=== PATIENT | female | born 1990 | race Caucasian/White ===

== ENCOUNTER 2019-03-30 02:39 | Inpatient (IN) | payer OTHER ==
[2019-03-30] MEDS ORDERED: BUTORPHANOL 1 MG/ML 1 ML VIAL IV PRN (03:02)
[2019-03-30] MEDS ORDERED: METHYLERGONOVINE 0.2 MG/ML 1 ML AMP IM PRN (03:02)
[2019-03-30] MEDS ORDERED: CARBOPROST TROMETHAMINE 250 MCG/ML 1 ML AMP IM PRN (03:02)
[2019-03-30] MEDS ORDERED: OXYTOCIN 10 UNIT/ML 1 ML VIAL IM PRN (03:02)
[2019-03-30] MEDS ORDERED: TERBUTALINE 1 MG/ML VIAL SQ PRN (03:02)
[2019-03-30] MEDS ORDERED: LIDOCAINE 0.5% (PF) 5 MG/ML (50 ML SDV) SQ PRN (03:02)
[2019-03-30] MEDS ORDERED: OXYTOCIN 30 UNITS/500 ML NS 30 UNIT in SALINE 1 500ML.BAG IV SCH (03:15)
[2019-03-30] MEDS: LACTATED RINGERS 1,000 ML IV SCH ×3 (03:39→08:27)
[2019-03-30 03:41] LABS: Glucose,Whole Blood 131 mg/dL (75-99)
[2019-03-30 03:51] LABS: Basophils # (A) 0.1 k/uL (0-0.2); Basophils % (A) 1 %; Eosinophils # (A) 0.2 k/uL (0-0.7); Eosinophils % (A) 2 %; HCT 39.2 % (34.0-46.0); HGB 13.3 gm/dL (11.4-16.0); Lymphocytes # (A) 2.1 k/uL (1.0-4.8); Lymphocytes % (A) 21 %; MCH 30.6 pg (25.0-35.0); MCHC 33.8 g/dL (31.0-37.0); MCV 90.3 fL (80.0-100.0); Monocytes # (A) 0.6 k/uL (0-1.0); Monocytes % (A) 5 %; Neutrophils % (A) 70 %; Platelet Count 253 k/uL (150-450); RBC 4.34 m/uL (3.80-5.40); RDW 12.9 % (11.5-15.5); WBC 10.1 k/uL (3.8-10.6)
[2019-03-30 04:05] VITALS: BMI 29.5
[2019-03-30 05:16] LABS: Glucose,Whole Blood 117 mg/dL (75-99)
[2019-03-30 06:17] LABS: Glucose,Whole Blood 95 mg/dL (75-99)
[2019-03-30] MEDS ORDERED: fentaNYL (PF) 50 MCG/ML 5 ML AMP ONE (07:42)
[2019-03-30] MEDS ORDERED: SODIUM CHLORIDE 0.9% 100 ML BAG ONE (07:42)
[2019-03-30] MEDS ORDERED: ePHEDrine SULFATE/0.9% NACL/PF 50 MG/5 ML SYRINGE IV ONE (07:42)
[2019-03-30] MEDS ORDERED: ROPIVACAINE 5MG/ML 20ML VIAL ONE (07:42)
[2019-03-30 08:09] LABS: Glucose,Whole Blood 94 mg/dL (75-99)
[2019-03-30 09:49] LABS: Glucose,Whole Blood 98 mg/dL (75-99)
--- NOTE | 2019-03-30 10:47 | P.HPOB ---
History of Present Illness H&P Date: 03/30/19 Chief Complaint: My water broke at 1:30 this morning This is a 28-year-old white female 2 para 1001 EDC 04/15/2019 at 37-5/7 weeks' gestation. Patient presents today with a history of her water breaking this morning, at 0130 hours, clear fluid. She denied uterine contractions upon admission. She denies vaginal bleeding. Fetus is been active throughout the . Past obstetric history is significant for gestational diabetes, insulin managed. Blood sugar on admission 131, currently 98. Blood type is A+, rubella status immune. Group B strep cultures negative. Hepatitis B surface antigen, urine drug screen, HIV testing, Pap smear, gonorrhea and chlamydia cultures all negative. Past medical history is significant for anxiety and asthma. Past surgical history wisdom teeth extracted at age 15. Current medications vitamin daily, Prozac 20mg daily. ALLERGIES none known. Family history significant for hypertension, seizure disorder, and alcoholism. Social history patient is a former marijuana smoker, no tobacco or marijuana with . She is employed, she is , her Osmar is present and involved. On exam this is a pleasant white female who is 5 foot 8 inches, 194 pounds, blood pressure on admission 146/68. The general physical exam is within normal limits. Cervix on admission was closed, posterior, long, vertex. Oxytocin augmentation has been started. Cervix at time of this dictation is 9 cm dilated, 90% effaced, -1 station, still slightly posterior. heart rate is in the 140s with frequent accelerations, consistent with reactive NST. Uterine contractions are occurring approximately every 6 minutes apart. Epidural has been placed per her request. Impression: 37-5/7 weeks intrauterine , gestational diabetes with good control utilizing insulin, active labor. Group B strep cultures negative. All signs reassuring. Plan: Continue close maternal and surveillance. Anticipate normal spontaneous vaginal delivery. Review of Systems Constitutional: Reports as per HPI Past Medical History Past Medical History: Asthma Additional Past Medical History / Comment(s): IBS/Gluten Allergy History of Any Multi-Drug Resistant Organisms: None Reported Additional Past Surgical History / Comment(s): [place] teeth removed Past Anesthesia/Blood Transfusion Reactions: No Reported Reaction Past Psychological History: Anxiety, Depression Additional Psychological History / Comment(s): Prozac Smoking Status: Never smoker Past Alcohol Use History: Rare Past Drug Use History: None Reported - Past Family History Father Family Medical History: No Reported History Medications and Allergies Home Medications Medication Instructions Recorded Confirmed Type FLUoxetine HCL [FLUoxetine DR] 20 mg PO DAILY 01/23/19 03/30/19 History Pnv,Calcium 72/Iron/Folic Acid 1 tab PO DAILY 01/23/19 03/30/19 History [ Plus Tablet] Allergies Allergy/AdvReac Type Severity Reaction Status Date / Time [place] And Derivatives Allergy Nausea Verified 03/30/19 03:02 [[place]] gluten Allergy Diarrhea Verified 03/30/19 03:02 Exam Vital Signs Temp Pulse Resp BP Pulse Ox 03/30/19 05:04 98.2 F 83 16 133/68 03/30/19 03:26 96.9 F L 77 16 146/67 99 03/30/19 03:03 96.9 F L 77 16 146/67 99 Intake and Output 03/29/19 03/30/19 03/30/19 22:59 06:59 14:59 Intake Total 2000 Balance 1999 Intake: IV 2000 Lactated Ringers 1,000 ml 2000 @ 125 mls/hr IV .Q8H KODY Rx#:[id number] Other: # Voids 1 Weight 87.997 kg See dictation under HPI please Results Result Diagrams: 03/30/19 03:37 Abnormal Lab Results - Last 24 Hours (Table) 03/30/19 03/30/19 Range/Units 03:30 05:03 POC Glucose (mg/dL) 131 H 117 H (75-99) mg/dL Assessment and Plan Assessment: 37-5/7 weeks intrauterine , history of anxiety and asthma. Active labor. Gestational diabetes, most recent blood sugar 98. All signs reassuring. Plan: Continue close maternal and surveillance. Continue oxytocin augmentation per hospital protocol. Anticipate normal spontaneous vaginal delivery. Time with Patient: Less than 30
--- NOTE | 2019-03-30 10:52 | P.MSEPDOC ---
Presenting Problems - Arrival Data Date of Arrival on Unit: 03/30/19 Time of Arrival on Unit: 03:00 Mode of Transport: Wheelchair - Complaint OB-Reason for Admission/Chief Complaint: Possible Onset of Labor, Rule Out SROM Comment: SROM clear fluid at 0130 Medical History - Information : 2 Para: 1 Term: 1 : 0 Abortions: Spontaneous or Elective: 0 Number of Living Children: 1 - Gestational Age Gestational Age by RONAK (wks/days): 37 Weeks and 5 Days - History Complications: GDM Review of Systems - Review of Systems Constitutional: No problems Breast: No problems ENT: No problems Cardiovascular: No problems Respiratory: No problems Gastrointestinal: No problems Genitourinary: No problems Musculoskeletal: No problems Neurological: No problems Skin: No problems Vital Signs - Temperature Temperature: 98.2 F Temperature Source: Temporal Artery Scan - Pulse Right Pulse Rate: 83 Pulse Assessment Method: Pulse Oximetry - Respirations Respiratory Rate: 16 - Blood Pressure Right Arm Blood Pressure: 133/68 Blood Pressure Mean: 89 Blood Pressure Source: Automatic Cuff Medical Screen Scoring (Pre) - Cervical Exam Dilation: 0 cm = 0 Membranes: Ruptured = 3 - Uterine Contractions Frequency: > or = 36 weeks =2 Duration: > 40 seconds = 2 Intensity: N/A - Maternal Vital Signs Maternal Temperature: N/A Maternal Blood Pressure: N/A Signs of Preeclampsia: N/A Maternal Respirations: N/A - Maternal Trauma Maternal Trauma: N/A - Assessment - Baby A Baseline FHR: 130 Heart Rate - NICHD Category: Category I (Normal) = 0 NST: Reactive Position: N/A Station: N/A - Total Score - Baby A Total Score - Baby A: 7 - Total Score - Baby B Total Score - Baby B: 7 - Total Score - Baby C Total Score - Baby C: 7 - Level of Risk - Baby A Level of Risk - Baby A: Medium (6-9) - Level of Risk - Baby B Level of Risk - Baby B: Medium (6-9) - Level of Risk - Baby C Level of Risk - Baby C: Medium (6-9) Physician Notification (Pre) - Physician Notified Spoke With: RAYRAY New Order Received: Yes - Notification Comment Comment: CALLED FOR UPDATE AND REQUESTED VAG EXAM AT 0900 AND CALL BACK WITH RESULTS Disposition - Disposition OB Disposition: Admit Transferred to:: 7 I agree with the RN Medical Screening Exam: Yes Risk & Benefit of care provided described in d/c instruction: Yes Diagnosis: LOUSE-BORNE TYPHUS
[2019-03-30] MEDS ORDERED: LANOLIN CREAM 5 GM TUBE TOPICAL PRN (11:49)
[2019-03-30] MEDS ORDERED: diphenhydrAMINE ELIXIR 25 MG/10 ML CUP PO PRN (11:49)
[2019-03-30] MEDS ORDERED: ZOLPIDEM 5 MG TAB PO PRN (11:49)
[2019-03-30] MEDS ORDERED: diphenhydrAMINE 50 MG CAP PO PRN (11:49)
[2019-03-30] MEDS ORDERED: WITCH HAZEL 1 EACH MED..PAD TOPICAL PRN (11:49)
[2019-03-30] MEDS ORDERED: BENZOCAINE/MENTHOL SPRAY 1 GM/SPRAY AEROSOL TOPICAL PRN (11:49)
[2019-03-30] MEDS ORDERED: diphenhydrAMINE 50 MG/ML 1 ML VIAL IVP PRN ×2 (11:49)
[2019-03-30] MEDS ORDERED: diphenhydrAMINE 25 MG CAP PO PRN (11:49)
[2019-03-30] MEDS ORDERED: SIMETHICONE 80 MG CHEWABLE PO PRN (11:49)
[2019-03-30] MEDS ORDERED: HYDROCORTISONE 2.5% RECTAL CREAM 30 GM TUBE RECTAL PRN (11:49)
--- NOTE | 2019-03-30 11:49 | P.PROBDLV ---
Vaginal Delivery Note - . Vaginal Delivery Note: This is a 28-year-old white female 2 para 1001 EDC 04/15/2019 at 37-5/7 weeks' gestation. Patient presented earlier this morning with spontaneous amniorrhexis which occurred at home, clear fluid. Her is remarkable for gestational diabetes, well controlled on insulin. In addition she is on Prozac for history of anxiety. [place] strep cultures negative. Blood type A+. Rubella status immune. Please see dictated history and physical for details. On admission cervix is closed posterior and long. Oxytocin was started and titrated per hospital protocol. She progressed well through the first stage of labor, requested epidural and this was placed without difficulty. Patient became completely dilated at 1120 hours and began the second stage of labor at that time. With excellent maternal expulsive efforts the infant crowned in the occiput ant erior position after the perineal body was prepped and draped in the usual sterile fashion. The was no nuchal cord noted. The right or anterior shoulder was gently delivered from underneath the pubic symphysis at which time the oropharynx, nasopharynx, and external nares were all bulb suctioned. Patient was officially delivered a liveborn female at 1127 hours. Umbilical cord was doubly clamped and ligated, she was handed to waiting nurses for evaluation where scores of 9 and 9 at one and 5 minutes respectively were given. Placenta delivered spontaneously, it was inspected and noted to be intact with trivascular cord at 1129 hours. Uterus is then massaged. Inspection of the cervix, vagina, perineum, periurethral, and perirectal areas revealed a small second-degree perineal laceration. This was injected with lidocaine and repaired in the usual fashion. weighs 7 lbs. 5 oz. or 3310 g. Total estimated blood loss 250 mL's. All sponge needle and enhancement counts are correct at the end of the procedure. Patient is allowed to begin the bonding experience in the LDR.
[2019-03-30] MEDS ORDERED: FLUoxetine HCL 20 MG CAP PO STA (11:51)
[2019-03-30] MEDS ORDERED: OXYTOCIN 20 UNITS/1000 ML NS 1,000 ML IV SCH (12:00)
[2019-03-30] MEDS: IBUPROFEN 600 MG TAB PO PRN ×2 (12:25→18:45)
[2019-03-30] MEDS: ACETAMINOPHEN TAB 325 MG TAB PO PRN ×2 (16:07→20:54)
[2019-03-30] MEDS: SENNOSIDES-DOCUSATE SODIUM 1 EACH TAB PO SCH (20:48)
[2019-03-31] MEDS: IBUPROFEN 600 MG TAB PO PRN ×3 (00:26→16:11)
[2019-03-31] MEDS: ACETAMINOPHEN TAB 325 MG TAB PO PRN ×2 (04:52→20:41)
[2019-03-31] MEDS: SENNOSIDES-DOCUSATE SODIUM 1 EACH TAB PO SCH ×2 (08:48→20:41)
--- NOTE | 2019-03-31 10:41 | P.DS ---
Providers Date of admission: 03/30/19 02:53 Expected date of discharge: 03/31/19 Attending physician: Fouzia Sosa [facility] Course: This is a 28-year-old white female 2 para 1001 EDC 04/15/19 at 37-5/7 weeks' gestation. Patient presented with spontaneous amniorrhexis which occurred at home, clear fluid. Her was remarkable for gestational diabetes, on insulin. She additionally has a history of anxiety, and is on Prozac. Group B strep cultures negative, rubella status immune, blood type A+. Please see dictated history and physical for details. Patient was admitted, oxytocin augmentation was started. Epidural was placed per her request. She went on to deliver vaginally a liveborn female with scores of 9 and 9 at one and 5 minutes respectively. Baby weighed 7 lbs. 5 oz. or 3310 g. There was a small second-degree daily perineal laceration easily repaired. Estimated blood loss recorded of 250 mL's. Please see dictated delivery note for details. This morning the patient is doing well. She is voiding, ambulating, and passing flatus without difficulty. Vital signs are stable and she is afebrile. Fundus is firm and in the midline, symmetric and 18 week size. Extremities are negative for edema. Breast-feeding is going well, a prescription for breast pump is provided. Patient is judged to be in very good condition for discharge home. She will follow-up with me in the office in 6 weeks. I have reminded her no intercourse, tampons or douching. She will use [id number] Advil or Aleve, or ibuprofen as needed for pain. She will continue her Prozac daily, and her vitamin daily. I've asked her to call me with any fevers shakes or chills, foul smelling or copious lochia, with the passage of large blood clots, with any pain not alleviated by [id number] products, or indeed with any difficulties problems or concerns. We have reviewed options for contraception and this will be discussed further in the office. Patient Condition at Discharge: Good Plan - Discharge Summary Discharge Rx Participant: No New Discharge Prescriptions: No Action Pnv,Calcium 72/Iron/Folic Acid [ Plus Tablet] 1 tab PO DAILY FLUoxetine HCL [FLUoxetine DR] 20 mg PO DAILY Discharge Medication List FLUoxetine HCL [FLUoxetine DR] 20 mg PO DAILY 01/23/19 [History] Pnv,Calcium 72/Iron/Folic Acid [ Plus Tablet] 1 tab PO DAILY 01/23/19 [History] Follow up Appointment(s)/Referral(s): Fouzia Sosa MD [Primary Care Provider] - 6 Weeks Discharge Disposition: HOME SELF-CARE
[2019-03-31 15:39] VITALS: TEMP 98.6
[2019-03-31 21:08] VITALS: BP 121/69; PULSE 74; RESP 12
== END 2019-03-31 21:10 | disposition home or self-care (01) | DRG 807 ==
LOC: FBPOP 02:39 → 4FBP 02:53
PROVIDERS: ADMIT Obstetrics & Gynecology; ATTEND Obstetrics & Gynecology
PROC: 10E0XZZ Delivery of Products of Conception, External Approach (ICD-10-PCS; principal; 2019-03-30)
PROC: 0KQM0ZZ Repair Perineum Muscle, Open Approach (ICD-10-PCS; 2019-03-30)
PROC: 00HU33Z Insertion of Infusion Device into Spinal Canal, Percutaneous Approach (ICD-10-PCS; 2019-03-30)
PROC: 3E0R3BZ Introduction of Anesthetic Agent into Spinal Canal, Percutaneous Approach (ICD-10-PCS; 2019-03-30)
DX: O24.424 Gestational diabetes mellitus in childbirth, insulin controlled (principal); Z37.0 Single live birth; O99.344 Other mental disorders complicating childbirth; O99.52 Diseases of the respiratory system complicating childbirth; O70.1 Second degree perineal laceration during delivery; F32.9 Major depressive disorder, single episode, unspecified; Z3A.37 37 weeks gestation of pregnancy; F41.9 Anxiety disorder, unspecified; J45.909 Unspecified asthma, uncomplicated; F12.11 Cannabis abuse, in remission; Z79.4 Long term (current) use of insulin; Z79.899 Other long term (current) drug therapy; Z98.890 Other specified postprocedural states; Z91.018 Allergy to other foods; Z82.49 Family history of ischemic heart disease and other diseases of the circulatory system; Z82.0 Family history of epilepsy and other diseases of the nervous system; Z81.1 Family history of alcohol abuse and dependence
CPT/HCPCS: 85025; 86850; 86900; 86901

== ENCOUNTER 2019-09-19 18:42 | Emergency (ER) | payer OTHER ==
[2019-09-19] MEDS ORDERED: SODIUM CHLORIDE 0.9% 500 ML 500 ML IV STA (19:14)
[2019-09-19] MEDS ORDERED: KETOROLAC 30 MG/ML 1 ML VIAL IM STA (19:16)
[2019-09-19] MEDS ORDERED: ORPHENADRINE 30 MG/ML 2 ML VIAL IVP STA (19:16)
[2019-09-19] MEDS ORDERED: DIAZEPAM 5 MG/ML 2 ML INJ IVP STA (19:30)
[2019-09-19 19:43] LABS: Basophils % (A) 0 %; Eosinophils # (A) 0.2 k/uL (0-0.7); Eosinophils % (A) 3 %; HCT 43.4 % (34.0-46.0); HGB 14.6 gm/dL (11.4-16.0); Lymphocytes # (A) 2.6 k/uL (1.0-4.8); Lymphocytes % (A) 41 %; MCH 29.8 pg (25.0-35.0); MCHC 33.7 g/dL (31.0-37.0); MCV 88.4 fL (80.0-100.0); Mean Platelet Volume 7.1; Monocytes # (A) 0.2 k/uL (0-1.0); Monocytes % (A) 4 %; Neutrophils % (A) 49 %; Platelet Count 276 k/uL (150-450); RBC 4.91 m/uL (3.80-5.40); RDW 11.5 % (11.5-15.5); WBC 6.2 k/uL (3.8-10.6)
--- NOTE | 2019-09-19 19:50 | ED ---
General Adult HPI - General Chief complaint: Neck Pain/Injury Stated complaint: Neck Pain Time Seen by Provider: 09/19/19 18:53 Source: patient, RN notes reviewed Mode of arrival: ambulatory Limitations: no limitations - History of Present Illness Initial comments: 28-year-old female presents to the emergency department for a chief complaint of neck pain. Patient states this started 5 days ago when she woke up. States she went to stretch and felt a sudden pain in the back of her neck. States that her neck was sore the whole day. The next day she went to the chiropractor and this helped with the pain after her adjustment. Patient states that he did have improvement from the past several days however today she went to shake a protein shake her and suddenly felt the pain again. She went to the chiropractor who did not feel comfortable adjusting her and sent her to her primary care doctor who ultimately sent her to the emergency Department. Patient denies any constitutional symptoms. Denies any fevers or chills. Denies any numbness or weakness in the upper extremities. Has had similar neck pain prior. Denies any associated headaches. States she feels completely normal aside from this neck pain.Patient has no other complaints at this time including shortness of breath, chest pain, abdominal pain, nausea or vomiting, headache, or visual changes. - Related Data Home Medications Medication Instructions Recorded Confirmed FLUoxetine HCL [FLUoxetine DR] 20 mg PO DAILY 01/23/19 03/30/19 Pnv,Calcium 72/Iron/Folic Acid 1 tab PO DAILY 01/23/19 03/30/19 [ Plus Tablet] Previous Rx's Medication Instructions Recorded Acetaminophen [Tylenol] 500 mg PO Q4-6H PRN #20 tab 09/19/19 Cyclobenzaprine [Flexeril] 10 mg PO TID #14 tab 09/19/19 Ibuprofen [Motrin] 600 mg PO Q6HR PRN #20 tab 09/19/19 Allergies Allergy/AdvReac Type Severity Reaction Status Date / Time [place] And Derivatives Allergy Nausea Verified 09/19/19 18:50 [[place]] gluten Allergy Diarrhea Verified 09/19/19 18:50 Review of Systems ROS Statement: Those systems with pertinent positive or pertinent negative responses have been documented in the HPI. ROS Other: All systems not noted in ROS Statement are negative. Past Medical History Past Medical History: Asthma Additional Past Medical History / Comment(s): IBS/Gluten Allergy History of Any Multi-Drug Resistant Organisms: None Reported Additional Past Surgical History / Comment(s): [place] teeth removed Past Anesthesia/Blood Transfusion Reactions: No Reported Reaction Past Psychological History: Anxiety, Depression Smoking Status: Never smoker Past Alcohol Use History: Rare Past Drug Use History: None Reported - Past Family History Father Family Medical History: No Reported History General Exam Limitations: no limitations General appearance: alert, in no apparent distress Head exam: Present: atraumatic, normocephalic, normal inspection Eye exam: Present: normal appearance, PERRL, EOMI. Absent: scleral icterus, conjunctival injection, periorbital swelling ENT exam: Present: normal exam, mucous membranes moist Neck exam: Present: tenderness (Midline and paraspinal tenderness), other (Patient has trapezius pain when shrugging her shoulders.). Absent: meningismus (Negative Kernig, negative Brudzinski, negative Lhermitte sign), full ROM (Patient has about 15 lateral rotation bilaterally. She has about 20 flexion and extension to neutral position.) Respiratory exam: Present: normal lung sounds bilaterally. Absent: respiratory distress, wheezes, rales, rhonchi, stridor Cardiovascular Exam: Present: regular rate, normal rhythm, normal heart sounds. Absent: systolic murmur, diastolic murmur, rubs, gallop, clicks Extremities exam: Present: other (Radial pulses 2+ and equal bilaterally. [employer] strength 5 out of 5 bilaterally. Sensation intact bilaterally.) Course Vital Signs 09/19/19 09/19/19 18:46 20:28 Temperature 98.1 F 97.1 F L Pulse Rate 62 53 L Respiratory 18 16 Rate Blood Pressure 126/84 117/72 O2 Sat by Pulse 99 99 Oximetry Medical Decision Making - Medical Decision Making Vitals are stable. Physical exam does reveal some mild paraspinal cervical tenderness. Patient is able to flex neck about 30 and extend to neutral position or about 10 extension. Rotation limited secondary to pain. Negative Kernig, Brudzinski, Lhermitte sign. Neurovascular status intact in the upper extremities bilaterally. Patient does not have any constitutional symptoms. CBC CMP unremarkable. ESR 6. CRP is less than 5. CT angiography of the head and neck shows no evidence of aneurysm or neurovascularity. Intracranial arteri es are relatively small which can be associated with spasm. No focal stenosis. Patient does not have any neurologic symptoms. Given pain worsening with movement of the neck, no evidence of constitutional symptoms, and history of injury patient likely has musculoskeletal neck pain. Patient was evaluated by Dr. Roberts thoroughly as well. We do not see any evidence for meningitis. Patient was given Toradol which did help significantly with her pain. She refused the Valium here however did agree to oral Flexeril. Discussed anti- inflammatories and gentle stretching. Discussed follow-up with primary care in 1-2 days. Patient will return here with any worsening symptoms including fever or increasing pain which were discussed with her. - Lab Data Result diagrams: 09/19/19 19:32 09/19/19 19:32 Lab Results 09/19/19 09/19/19 09/19/19 Range/Units 19:30 19:32 19:32 WBC 6.2 (3.8-10.6) k/uL RBC 4.91 (3.80-5.40) m/uL Hgb 14.6 (11.4-16.0) gm/dL Hct 43.4 (34.0-46.0) % MCV 88.4 (80.0-100.0) fL MCH 29.8 (25.0-35.0) pg MCHC 33.7 (31.0-37.0) g/dL RDW 11.5 (11.5-15.5) % Plt Count 276 (150-450) k/uL Neutrophils % 49 % Lymphocytes % 41 % Monocytes % 4 % Eosinophils % 3 % Basophils % 0 % Neutrophils # 3.0 (1.3-7.7) k/uL Lymphocytes # 2.6 (1.0-4.8) k/uL Monocytes # 0.2 (0-1.0) k/uL Eosinophils # 0.2 (0-0.7) k/uL Basophils # 0.0 (0-0.2) k/uL ESR 6 (0-20) mm/hr Sodium 139 (137-145) mmol/L Potassium 4.1 (3.5-5.1) mmol/L Chloride 99 (98-107) mmol/L Carbon Dioxide 30 (22-30) mmol/L Anion Gap 10 mmol/L BUN 12 (7-17) mg/dL Creatinine 0.71 (0.52-1.04) mg/dL Est GFR (CKD-EPI)AfAm >90 (>60 ml/min/1.73 sqM) Est GFR (CKD-EPI)NonAf >90 (>60 ml/min/1.73 sqM) Glucose 95 (74-99) mg/dL Calcium 9.9 (8.4-10.2) mg/dL Total Bilirubin 0.3 (0.2-1.3) mg/dL AST 23 (14-36) U/L ALT 19 (4-34) U/L Alkaline Phosphatase 91 (38-126) U/L C-Reactive Protein <5.0 (<10.0) mg/L Total Protein 8.1 (6.3-8.2) g/dL Albumin 5.0 (3.5-5.0) g/dL Urine HCG, Qual Not Detected (Not Detectd) Disposition Clinical Impression: Neck pain Disposition: HOME SELF-CARE Condition: Good Instructions (If sedation given, give patient instructions): Cervical Strain (ED) Additional Instructions: Please take Motrin and Tylenol for pain. You may alternate these every 3 hours. Take muscle relaxer as well. Do not drive or operate machinery while taking these. Pres[facility] to [facility]. Please follow-up with primary care in 1-2 days. If you have any worsening symptoms such as increasing pain, fevers, or numbness or tingling in the arms return immediately to the emergency department. Prescriptions: Cyclobenzaprine [Flexeril] 10 mg PO TID #14 tab Ibuprofen [Motrin] 600 mg PO Q6HR PRN #20 tab PRN Reason: Pain Acetaminophen [Tylenol] 500 mg PO Q4-6H PRN #20 tab PRN Reason: Pain Is patient prescribed a controlled substance at d/c from ED?: No Referrals: Doris Mills III, MD [Primary Care Provider] - 1-2 days Time of Disposition: 21:07
[2019-09-19 19:56] LABS: ALT 19 U/L (4-34); AST 23 U/L (14-36); African American GFR (CKD) >90 (>60 ml/min/1.73 sqM); Alkaline Phosphatase 91 U/L (38-126); Anion Gap 10 mmol/L; Blood Urea Nitrogen 12 mg/dL (7-17); C Reactive Protein <5.0 mg/L (<10.0); Calcium 9.9 mg/dL (8.4-10.2); Carbon Dioxide 30 mmol/L (22-30); Chloride 99 mmol/L (98-107); Glucose 95 mg/dL (74-99); Non-African American GFR(CKD) >90 (>60 ml/min/1.73 sqM); Potassium 4.1 mmol/L (3.5-5.1); Sodium 139 mmol/L (137-145); Total Bilirubin 0.3 mg/dL (0.2-1.3); Total Protein 8.1 g/dL (6.3-8.2)
[2019-09-19] MEDS ORDERED: KETOROLAC 30 MG/ML 1 ML VIAL IVP STA (19:59)
[2019-09-19 20:20] LABS: Erythrocyte Sedimentation Rate 6 mm/hr (0-20)
[2019-09-19 20:33] VITALS: BP 117/72; PULSE 53; RESP 16; TEMP 97.1
--- NOTE | 2019-09-19 20:37 | CT ---
EXAMINATION TYPE: CT angio head neck DATE OF EXAM: 09/19/2019 COMPARISON: HISTORY: Severe neck pain, no known injury. CT DLP: 425.7 mGycm Automated exposure control for dose reduction was used. CONTRAST: Performed with IV Contrast, patient injected with 65ml mL of Isovue 370. There are 3-D post processed images. Images were obtained from the aortic arch to the vertex of the b rain. There is normal branching pattern of the great vessels on the aortic arch. There is bilateral arteria l flow in the subclavian arteries. There is arterial flow in the common internal and external carotid arteries bilaterally. There is wide patency of the carotid artery bifurcations. There is bilateral a rterial flow in the vertebral arteries which are fairly symmetric. There is arterial flow in the vert ebrobasilar artery system. There is no evidence of carotid or vertebral artery aneurysm or dissection . There is arterial flow in the anterior middle and posterior cerebral arteries. There is no evidence o f intracranial aneurysm or neovascularity. There is no mass effect. I see no evidence of intracranial arterial focal stenosis. The anterior middle and posterior cerebral arteries are relatively small. There is normal contrast opacification of the venous sinuses. IMPRESSION: No evidence of aneurysm or neovascularity. The intracranial arteries are relatively small and of unce rtain significance. This can be associated with spasm. No focal stenosis.
[2019-09-19] MEDS ORDERED: CYCLOBENZAPRINE 10 MG TAB PO STA (21:04)
== END 2019-09-19 21:21 | disposition home or self-care (01) ==
LOC: EC 18:42
DX: M54.2 Cervicalgia (principal); F32.9 Major depressive disorder, single episode, unspecified; F41.9 Anxiety disorder, unspecified; Z91.018 Allergy to other foods; Z91.02 Food additives allergy status; Z79.899 Other long term (current) drug therapy; Z53.20 Procedure and treatment not carried out because of patient's decision for unspecified reasons
CPT/HCPCS: 36415; 80053; 85652; 85025; 86140; 81025; 70496; 70498; 99284; 96374; 96361; J1885; Q9967

== ENCOUNTER 2022-06-14 21:30 | Emergency (ER) | payer BC, OTHER ==
[2022-06-14] MEDS ORDERED: KETOROLAC 15 MG/ML 1 ML VIAL IM STA (21:55)
--- NOTE | 2022-06-14 22:18 | ED ---
Lower Extremity Injury HPI - General Chief Complaint: Extremity Injury, Lower Stated Complaint: Left Knee Injury Time Seen by Provider: 06/14/22 21:45 Source: patient, family, RN notes reviewed Mode of arrival: ambulatory Limitations: no limitations - History of Present Illness Initial Comments: Patient is a 31-year-old female presenting to the emergency room with complaints of left knee pain after playing soccer earlier today and tripping on her causing her to fall forward with her legs straight landing on her left knee. She reports that she heard a popping sensation and has had severe pain throughout the whole knee joint with the highest intensity of pain to the patellar and medial aspect. She reports the pain is so severe she does not wish to have range of motion assessment completed at this time. She denies any numbness or tingling in her extremity including the toes. She has not. Weight on her left leg since the injury earlier this evening. She reports multiple knee sprains and episodes of physical therapy when she was younger and playing soccer regularly. She has a past medical history in addition to her knee injuries of a sthma, and IBS with gluten allergy. - Related Data Home Medications Medication Instructions Recorded Confirmed FLUoxetine HCL [FLUoxetine DR] 20 mg PO DAILY 01/23/19 03/30/19 Vit No.180/Iron/Folic 1 tab PO DAILY 01/23/19 03/30/19 [ Plus Tablet] Previous Rx's Medication Instructions Recorded Acetaminophen [Tylenol] 500 mg PO Q4-6H PRN #20 tab 09/19/19 Cyclobenzaprine [Flexeril] 10 mg PO TID #14 tab 09/19/19 Ibuprofen [Motrin] 600 mg PO Q6HR PRN #20 tab 09/19/19 Ibuprofen [Motrin] 800 mg PO Q8H PRN 7 Days #21 tab 06/14/22 Allergies Allergy/AdvReac Type Severity Reaction Status Date / Time [place] And Derivatives Allergy Nausea Verified 06/14/22 21:32 [[place]] gluten Allergy Diarrhea Verified 06/14/22 21:32 morphine AdvReac Nausea Verified 06/15/22 00:34 Review of Systems ROS Statement: Those systems with pertinent positive or pertinent negative responses have been documented in the HPI. ROS Other: All systems not noted in ROS Statement are negative. Past Medical History Past Medical History: Asthma Additional Past Medical History / Comment(s): IBS/Gluten Allergy History of Any Multi-Drug Resistant Organisms: None Reported Additional Past Surgical History / Comment(s): [place] teeth removed Past Anesthesia/Blood Transfusion Reactions: No Reported Reaction Past Psychological History: Anxiety, Depression Smoking Status: Never smoker Past Alcohol Use History: Rare Past Drug Use History: Marijuana - Past Family History Father Family Medical History: No Reported History General Exam Limitations: no limitations General appearance: alert, in no apparent distress Head exam: Present: atraumatic, normocephalic, normal inspection Eye exam: Present: normal appearance, PERRL, EOMI. Absent: scleral icterus, conjunctival injection, periorbital swelling ENT exam: Present: normal exam, mucous membranes moist Neck exam: Present: normal inspection, full ROM Respiratory exam: Absent: respiratory distress, accessory muscle use Cardiovascular Exam: Present: regular rate GI/Abdominal exam: Absent: distended Left Knee exam: Present: tenderness, swelling, effusion. Absent: full ROM, ecchymosis, erythema Neurovascular tendon exam: Present: no vascular compromise Gait: not tested/not observed Back exam: Present: normal inspection Neurological exam: Present: alert, oriented X3, CN II-XII intact Psychiatric exam: Present: normal affect, normal mood Skin exam: Present: warm, dry, intact, normal color. Absent: rash Course Vital Signs 06/14/22 06/14/22 06/15/22 21:33 23:43 00:00 Pulse Rate 68 66 52 L Respiratory 16 18 16 Rate Blood Pressure 121/64 107/69 73/44 O2 Sat by Pulse 98 98 92 L Oximetry 06/15/22 06/15/22 06/15/22 00:11 00:30 01:12 Pulse Rate 55 L 52 L 60 Respiratory 16 18 16 Rate Blood Pressure 95/61 104/69 128/67 O2 Sat by Pulse 100 98 100 Oximetry Medical Decision Making - Medical Decision Making 31-year-old male presenting to the emergency room with knee pain after a trip and fall while playing soccer. Will obtain x-ray of the left knee. No indication for laboratory studies. Due to pain unable to evaluate range of motion. Will give Toradol IM for pain and monitor response. No significant improvement in pain from Toradol will give IM morphine and monitor response. X-ray of the knee image interpreted by me shows fine anterior fibula fracture nondisplaced along with knee effusion. Will place knee in immobilizer and supplied with crutches and keep nonweightbearing will have her follow-up with orthopedist for further evaluation and management. Will discharge home in stable condition with weightbearing and immobilizer restrictions as indicated above. Encouraged use of ibuprofen or Tylenol# 3 starter pack as needed for pain. Case discussed with Dr. Levy. - Radiology Data Radiology results: report reviewed, image reviewed X-ray left knee complete impression by radiologist there is likely a nondisplaced fracture of the anterior tibial spine seen on the lateral view. Mild knee joint effusion. Disposition Clinical Impression: Fracture of tibia Disposition: HOME SELF-CARE Condition: Stable Instructions (If sedation given, give patient instructions): Leg Fracture (ED), Knee Pain (ED) Additional Instructions: Please utilize Tylenol 3 starter pack or Motrin prescription as needed for pain. Keep the immobilizer on and no weightbearing with crutches use until follow-up and cleared by orthopedist. Please return to the Emergency Department if symptoms worsen or any other concerns. Prescriptions: Ibuprofen [Motrin] 800 mg PO Q8H PRN 7 Days #21 tab PRN Reason: Pain Is patient prescribed a controlled substance at d/c from ED?: No Referrals: Doris Mills III, MD [Primary Care Provider] - 1-2 days Corby Stokes PAC [PHYSICIAN [employer]] - 1-2 days Time of Disposition: 23:46
[2022-06-14] MEDS ORDERED: MORPHINE SULFATE 4 MG/ML SYRINGE IVP STA (22:29)
--- NOTE | 2022-06-14 23:09 | XR ---
EXAMINATION TYPE: XR knee complete LT DATE OF EXAM: 06/14/2022 COMPARISON: NONE HISTORY: Knee pain TECHNIQUE: 3 views FINDINGS: There is a mild knee joint effusion. There is irregular anterior cortex at the tibial spine s on the lateral view suspicious for acute fracture. No dislocation. Joint spaces are normal. IMPRESSION: There is likely a nondisplaced fracture of the anterior tibial spine seen on the lateral view. Mild knee joint effusion.
[2022-06-14] MEDS ORDERED: ACET/COD 300 MG/30 MG STARTER PACK 6 TAB BTL PO STA (23:44)
[2022-06-15] MEDS ORDERED: SODIUM CHLORIDE 0.9% 1,000 ML IV STA (00:04)
[2022-06-15 01:12] VITALS: BP 128/67; PULSE 60; RESP 16
== END 2022-06-15 01:11 | disposition home or self-care (01) ==
LOC: EC 21:30
DX: S82.202A Unspecified fracture of shaft of left tibia, initial encounter for closed fracture (principal); M25.462 Effusion, left knee; J45.909 Unspecified asthma, uncomplicated; F41.9 Anxiety disorder, unspecified; F32.A Depression, unspecified; F12.90 Cannabis use, unspecified, uncomplicated; Z91.018 Allergy to other foods; Z88.5 Allergy status to narcotic agent; W01.0XXA Fall on same level from slipping, tripping and stumbling without subsequent striking against object, initial encounter; Y93.66 Activity, soccer
CPT/HCPCS: 99284; 96374; 96361; 96372; 73562; J2270; J1885

== ENCOUNTER → 2022-06-21 | Outpatient (CLI) | payer BC ==
--- NOTE | 2022-06-22 09:43 | MR ---
EXAMINATION TYPE: MR knee LT wo con DATE OF EXAM: 06/21/2022 COMPARISON: Outside left knee x-ray one day earlier. Prior x-ray 1 week earlier. HISTORY: L knee pain x 1 week, soccer injury TECHNIQUE: Multiplanar, multisequence images of the knee is performed without IV contrast. FINDINGS: MEDIAL MENISCUS: Anterior and posterior horns are intact without tear. LATERAL MENISCUS: Anterior and posterior horns are intact without tear. CRUCIATE LIGAMENTS: The anterior and posterior cruciate ligaments are intact and unremarkable. COLLATERAL LIGAMENTS: The medial collateral ligament is intact and unremarkable. Lateral collateral l igament complex shows increased signal and thickening of the biceps femoris proximal attachment coron al image 19 from reference. There is lateral bowing with surrounding fluid. EXTENSOR MECHANISM: Visualized quadriceps and patellar tendons are intact. EFFUSION: Large suprapatellar joint effusion has fluid fluid level. POPLITEAL CYST: No popliteal/allen cyst. TRICOMPARTMENT SPACES: No significant spurring is seen. CARTILAGE: Tricompartment articular cartilage is preserved. BONE MARROW SIGNAL: There is confirmation of displaced subtle fracture involving the anterior medial aspect of the tibial plateau correlating with plain films showing a 1.7 x 1.2 cm ossific fragment. Th ere is surrounding edema at this level. Some additional mild osseous edema in the adjacent anterior m edial tibial plateau. OTHER: Moderate subcutaneous edema greatest laterally and anteriorly is seen with additional deep luis carlos ma in the proximal popliteal region and more superficial edema posteriorly. IMPRESSION: Confirmation of acute displaced avulsion type fracture involving the anterior medial aspe ct of the tibial plateau with 1.7 cm ossific fracture fragment. There is associated hemarthrosis wit h fluid fluid level noted in the large suprapatellar fluid collection. Anterior cruciate ligament rem ains intact as articulates just posterior and lateral to the displaced fracture fragment.
== END | disposition home or self-care (01) ==
LOC: RADMRIMAIN 07:44
PROVIDERS: ATTEND Orthopaedic Surgery
DX: S82.142A Displaced bicondylar fracture of left tibia, initial encounter for closed fracture (principal); M25.562 Pain in left knee

== ENCOUNTER → 2022-07-27 | Outpatient (CLI) | payer BC ==
--- NOTE | 2022-07-27 15:56 | US ---
EXAMINATION TYPE: US venous doppler duplex LE LT DATE OF EXAM: 07/27/2022 10:03 AM COMPARISON: NONE CLINICAL HISTORY: M79.605 PAIN IN LEFT LEG R60.0 LOCALIZED EDEMA R60.0 LOCALIZ. SIDE PERFORMED: Left TECHNIQUE: The lower extremity deep venous system is examined utilizing real time linear array sonog niko with graded compression, doppler sonography and color-flow sonography. VESSELS IMAGED: Common Femoral Vein Deep Femoral Vein Greater Saphenous Vein * Femoral Vein Popliteal Vein Small Saphenous Vein * Proximal Calf Veins (* superficial vessels) Left Leg: Negative for DVT IMPRESSION: 1. Left lower extremity ultrasound negative for deep venous thrombosis.
== END | disposition home or self-care (01) ==
LOC: RADUSWWP 09:41
PROVIDERS: ATTEND Family Medicine
DX: M79.605 Pain in left leg (principal); R60.0 Localized edema